=== PATIENT | male | born 1955 | race Caucasian/White ===

== ENCOUNTER 2017-01-17 17:25 | Emergency (ER) | payer OTHER ==
[2017-01-17 18:20] VITALS: BP 114/79
--- NOTE | 2017-01-18 09:15 | EDM.PDOC ---
ED HPI GENERAL MEDICAL PROBLEM - General Chief Complaint: Laceration Time Seen by Provider: 01/17/17 17:38 Source of Information: Reports: Patient History Limitations: Reports: No Limitations - History of Present Illness INITIAL COMMENTS - FREE TEXT/NARRATIVE: This is a 61yo M who came to the ER for a laceration of the right forearm. Patient was using a drill and it broke and cut into his right forearm. Patient is on coumadin but was able to apply pressure and stop the bleeding. He has full movement of his right arm without any weakness or tingling. He complains of soreness near the area of injury. Onset: Sudden Location: Reports: Upper Extremity, Right Severity: Mild Improves with: Reports: None Worsens with: Reports: None Associated Symptoms: Reports: No Other Symptoms Treatments ASSEM[employer]ER [employer]INGER [employer]S: Reports: Other (see below) Other Treatments AS[employer]ING[employer]S: towel dresing Right Inner Forearm Pain Score (Numeric/FACES): 2 - Related Data Allergies Allergy/AdvReac Type Severity Reaction Status Date / Time No Known Allergies Allergy Verified 01/17/17 17:35 Home Meds: Home Meds Carvedilol [Coreg] 25 mg PO BID 01/17/17 [History] Digoxin [Lanoxin] 125 mcg PO DAILY 01/17/17 [History] Insulin Glarg,Human.Rec.Analog [LantUS Solostar] 28 unit SUBCUT QPM 01/17/17 [ History] Lisinopril [Lisinopril] 40 mg PO DAILY 01/17/17 [History] Simvastatin [Zocor] 20 mg PO BEDTIME 01/17/17 [History] Warfarin Sodium [Coumadin] 7.5 mg PO ASDIRECTED 01/17/17 [History] Warfarin [Coumadin] 5 mg PO ASDIRECTED 01/17/17 [History] glipiZIDE [Glipizide] 5 mg PO BIDMEALS 01/17/17 [History] metFORMIN HCl [Glucophage] 500 mg PO BIDMEALS 01/17/17 [History] Past Medical History Cardiovascular History: Reports: Afib, Heart Failure, High Cholesterol, Hypertension Genitourinary History: Reports: Prostate Disorder Endocrine/Metabolic History: Reports: Diabetes, Type II Oncologic (Cancer) History: Reports: Prostate - Past Surgical History Musculoskeletal Surgical History: Reports: Knee Replacement Social & Family History - Family History Family Medical History: Noncontributory - Tobacco Use Smoking Status *Q: Never Smoker - Recreational Drug Use Recreational Drug Use: No ED ROS GENERAL - Review of Systems Review Of Systems: ROS reveals no pertinent complaints other than HPI. ED EXAM, SKIN/RASH Exam: See Below Exam Limited By: No Limitations General Appearance: Alert, WD/WN, No Apparent Distress Ears: Normal External Exam Nose: Normal Inspection Throat/Mouth: Normal Inspection Head: Atraumatic, Normocephalic Neck: Normal Inspection Respiratory/Chest: No Respiratory Distress, Lungs Clear Cardiovascular: Normal Peripheral Pulses, Regular Rate, Rhythm Peripheral Pulses: 2+: Radial (L), Radial (R) Extremities: Other (laceration of the ventral aspect of right forearm 3.5cm linear laceration superficial) Neurological: Alert, Oriented, CN II-XII Intact ED SKIN PROCEDURES - Laceration/Wound Repair Right Distal Arm Lac/wound length in cm: 3.5 Appearance: superficial Distal NVT: neuro & vascular intact, no tendon injury Skin prep: providone-iodine (betadine) Exploration/Debridement/Repair: wound explored Closed with: dermabond Course - Vital Signs Last Recorded V/S: Last Vital Signs Temp 36.5 C 01/17/17 17:50 Pulse 81 01/17/17 17:50 Resp 16 01/17/17 17:50 BP 114/79 01/17/17 17:50 Pulse Ox 98 01/17/17 17:50 Departure - Departure Time of Disposition: 18:00 Disposition: Home, Self-Care 01 Condition: good Clinical Impression: Laceration - Discharge Information Instructions: Laceration Care, Adult, [id number], Stitches, Danyell, or Adhesive Wound Closure, [id number] Referrals: PCP,None [Primary Care Provider] - Forms: ED Department Discharge Additional Instructions: Keep right arm elevated and ice intermittently. You will have bruising and you will be sore. Keep site clean and dry. Don't need to wash the wound. Be seen at the clinic if you develop redness, swelling, pussy drainage, or fever. Be seen at the clinic of your arm gets swollen, very tender, poor movement, or any numbness or tingling in your fingers. - Problem List Review Problem List Initiated/Reviewed/Updated: Yes - Assessment/Plan Plan: Counseled on laceration and wound care and f/u for any dehiscence or complications or infections. Patient agrees with care of wound and f/u as required.
== END 2017-01-17 18:02 | disposition home or self-care (01) ==
LOC: LB.ED 17:25
DX: S51.811A Laceration without foreign body of right forearm, initial encounter (principal); I50.9 Heart failure, unspecified; I11.0 Hypertensive heart disease with heart failure; I48.91 Unspecified atrial fibrillation; Z79.4 Long term (current) use of insulin; E78.00 Pure hypercholesterolemia, unspecified; E11.9 Type 2 diabetes mellitus without complications; Z79.01 Long term (current) use of anticoagulants
CPT/HCPCS: 12002; 99282-25

== ENCOUNTER 2023-08-01 17:46 | Emergency (ER) | payer OTHER, MEDICARE ==
[2023-08-01] MEDS ORDERED: traMADol 50 MG Tab PO ONE (18:26)
[2023-08-01] MEDS ORDERED: traMADol 50 MG Tab ONE (19:00)
== END 2023-08-01 19:15 | disposition home or self-care (01) ==
LOC: LB.ED 17:46
DX: S70.02XA Contusion of left hip, initial encounter (principal); I11.0 Hypertensive heart disease with heart failure; I50.9 Heart failure, unspecified; E78.00 Pure hypercholesterolemia, unspecified; I48.91 Unspecified atrial fibrillation; E11.9 Type 2 diabetes mellitus without complications; Z79.84 Long term (current) use of oral hypoglycemic drugs; Z79.899 Other long term (current) drug therapy; W18.40XA Slipping, tripping and stumbling without falling, unspecified, initial encounter
CPT/HCPCS: 73502; 99283; A9270

== ENCOUNTER 2024-06-19 07:03 | Day surgery (SDC) | payer OTHER, MEDICARE ==
[~2024-06-19 07:03] MED LIST: Metoclopramide 10 MG/2 ML SDV IV PRN; Sodium Chloride 0.9% 1,000 ML IV SCH
[2024-06-19] MEDS: Sodium Chloride 0.9% 500 ML IV ONE (07:25)
[2024-06-19] MEDS ORDERED: Glycopyrrolate 0.2 MG/ML 2 ML SDV ONE (09:00)
[2024-06-19] MEDS ORDERED: Propofol 200 MG/20 ML SDV ONE (09:00)
[2024-06-19] MEDS ORDERED: Lidocaine 1% 30 ML SDV ONE (09:00)
== END 2024-06-19 10:27 | disposition home or self-care (01) ==
LOC: LB.SDS 07:03
PROVIDERS: ATTEND Surgery
DX: D12.0 Benign neoplasm of cecum (principal); D12.2 Benign neoplasm of ascending colon; D12.5 Benign neoplasm of sigmoid colon; I10 Essential (primary) hypertension; E11.9 Type 2 diabetes mellitus without complications; I48.91 Unspecified atrial fibrillation; Z79.01 Long term (current) use of anticoagulants; Z79.84 Long term (current) use of oral hypoglycemic drugs; Z79.899 Other long term (current) drug therapy
CPT/HCPCS: 82947; 88305; J2704; J3490; J7040